=== PATIENT | female | born 2000 | race Two or more races ===

== ENCOUNTER 2024-11-16 13:48 | Emergency (ER) | payer OTHER ==
[~2024-11-16] VITALS: Ht 152.4 cm; Wt 122.0 kg
[2024-11-16] MEDS ORDERED: KETOROLAC TROMETHAMINE 60 MG VIAL IM STA (15:38)
[2024-11-16] MEDS ORDERED: ACETAMINOPHEN 500 MG GEL..CAP PO STA (15:38)
[2024-11-16] MEDS ORDERED: ACETAMINOPHEN 500 MG GEL..CAP PO ONE (15:46)
[2024-11-16] MEDS ORDERED: KETOROLAC TROMETHAMINE 60 MG VIAL IM ONE (15:46)
[2024-11-16] MEDS ORDERED: IBUPROFEN800 MG PO (18:59)
== END 2024-11-16 19:41 | disposition home or self-care (01) ==
LOC: ER 13:48
DX: S92.352A Displaced fracture of fifth metatarsal bone, left foot, initial encounter for closed fracture (principal); W18.39XA Other fall on same level, initial encounter; Y93.89 Activity, other specified; Y92.89 Other specified places as the place of occurrence of the external cause; Y99.9 Unspecified external cause status; Z88.0 Allergy status to penicillin

== ENCOUNTER 2024-12-03 11:13 | Outpatient (CLI) | payer OTHER ==
[~2024-12-03 11:13] MED LIST: IBUPROFEN800 MG PO
== END 2024-12-03 11:21 | disposition home or self-care (01) ==
LOC: RAD 11:13
PROVIDERS: ATTEND Orthopaedic Surgery
DX: M79.672 Pain in left foot (principal)